=== PATIENT | female | born 1975 | race American Indian/Alaskan Native ===

== ENCOUNTER 2017-11-11 23:03 | Emergency (ER) | payer OTHER ==
[2017-11-11 23:14] VITALS: BMI 31.2
--- NOTE | 2017-11-11 23:45 | ED PDOC ---
Arrival/HPI - General Chief Complaint: Dental Pain Time Seen by Provider: 11/11/17 23:13 Historian: Patient EM Caveat: Acuity of Condition - History of Present Illness Narrative History of Present Illness (Text): 11/11/17 23:40 Pt is a 41 yr old female with a PMH of poor dentition presents today with gum pain and buccal swelling x 2 days. Pt states that she is scheduled to have al over her teeth extracted next month due to ongoing dental pain and cavities but found the pain was too severe and needed to come in. Says she was given Naproxen by her dentist but has no relief with it. Reports diffiuclty eating and drinking and opening her mouth and has subjective fever. Denies chest pain, sob, neck pain, ear pain, difficulty swallowing or any other complaints. Time/Duration: > month Symptom Onset: Gradual Symptom Course: Unchanged Quality: Aching, Pressure Activities at Onset: Eating Context: Home Past Medical History - Provider Review Nursing Documentation Reviewed: Yes - Travel History Have you recently traveled outside [place] w/in the past 3 mons?: No - Infectious Disease Hx of Infectious Diseases: None - Cardiac Hx Cardiac Disorders: Yes Hx Hypertension: Yes - Pulmonary Hx Respiratory Disorders: Yes Hx Asthma: Yes - Neurological Hx Neurological Disorder: No - HEENT Hx HEENT Disorder: No - Renal Hx Renal Disorder: No - Endocrine/Metabolic Hx Endocrine Disorders: Yes Hx Diabetes Mellitus Type 2: Yes - Hematological/Oncological Hx Blood Disorders: No - Integumentary Hx Dermatological Disorder: No - Musculoskeletal/Rheumatological Hx Musculoskeletal Disorders: No - Gastrointestinal Hx Gastrointestinal Disorders: No - Genitourinary/Gynecological Hx Genitourinary Disorders: No - Psychiatric Hx Psychophysiologic Disorder: Yes Hx Depression: Yes Hx Substance Use: No - Surgical History Hx Section: Yes (2) Other/Comment: Umbilical Hernia - Anesthesia Hx Anesthesia: No Family/Social History - Physician Review Nursing Documentation Reviewed: Yes Family/Social History: Unknown Family HX Smoking Status: Light Smoker < 10 Cigarettes Daily Hx Alcohol Use: Yes Frequency of alcohol use: Socially Hx Substance Use: No Allergies/Home Meds Allergies/Adverse Reactions: Allergies No Known Allergies Allergy (Verified 11/11/17 23:13) Home Medications: Home Meds Medication Instructions Recorded Confirmed Alogliptin Benzoate [Alogliptin] 25 mg PO DAILY 11/11/17 11/11/17 Enalapril Maleate [Vasotec] 5 mg PO DAILY 11/11/17 11/11/17 PARoxetine [Paxil] 30 mg PO DAILY 11/11/17 11/11/17 Review of Systems - Review of Systems Constitutional: Normal Eyes: Normal ENT: Normal, Other (dental and gum swelling and erythema) Respiratory: Normal Cardiovascular: Normal Gastrointestinal: Normal Genitourinary Female: Normal Musculoskeletal: Normal Skin: Normal Neurological: Normal Endocrine: Normal Hemo/Lymphatic: Normal Psychiatric: Normal Physical Exam Vital Signs Reviewed: Yes Vital Signs Temp Pulse Resp BP Pulse Ox 11/12/17 01:03 98 F 87 19 120/80 100 11/11/17 23:22 98.7 F 98 H 18 125/89 97 Temperature: Afebrile Blood Pressure: Normal Pulse: Regular Respiratory Rate: Normal Appearance: Positive for: Well-Appearing, Non-Toxic, Uncomfortable Pain Distress: Moderate Mental Status: Positive for: Alert and Oriented X 3 Finger Stick Blood Glucose: 87 - Systems Exam Head: Present: Normocephalic Mouth: Present: Moist Mucous Membranes, Normal Lips, Normal Tounge, Other ( multipel dental caries and and gum inflammation). No: Drooling, Trismus, Normal Teeth Pharnyx: Present: Normal Neck: Present: Normal Range of Motion Respiratory/Chest: Present: Clear to Auscultation, Good Air Exchange. No: Respiratory Distress, Accessory Muscle Use Cardiovascular: Present: Regular Rate and Rhythm, Normal S1, S2. No: Murmurs Abdomen: No: Tenderness, Distention, Peritoneal Signs Back: Present: Normal Inspection Upper Extremity: Present: Normal Inspection. No: Cyanosis, Edema Lower Extremity: Present: Normal Inspection. No: Edema Neurological: Present: GCS=15, CN II-XII Intact, Speech Normal Skin: Present: Warm, Dry, Normal Color. No: Rashes Psychiatric: Present: Alert, Oriented x 3, Normal Insight, Normal Concentration Medical Decision Making ED Course and Treatment: 11/11/17 23:45 Pt is a 41 yr old female with a PMH of poor dentition presents today with gum pain and buccal swelling x 2 days. plan Labs, pain management and keflex assess and dispo Progress note pt given Toradol IM for mod pain Keflex 500 mg po stat d/c with Keflex 500 mg po q12 x 5 f/u with dentist in the next day to have mouth assessed - Lab Interpretations Lab Results: 11/12/17 00:35 11/12/17 00:35 Lab Results 11/12/17 00:35: Sodium 142, Potassium 3.3 L, Chloride 104, Carbon Dioxide 28, Anion Gap 13, BUN 10, Creatinine 0.7, Est GFR ( Amer) > 60, Est GFR (Non- Af Amer) > 60, Random Glucose 89, Calcium 8.6, Total Bilirubin 0.2, AST 17, ALT 22, Alkaline Phosphatase 76, Total Protein 6.9, Albumin 3.9, Globulin 3.0, Albumin/Globulin Ratio 1.3 11/12/17 00:35: WBC 10.4, RBC 3.87, Hgb 10.4 L, Hct 31.0 L, MCV 80.1, MCH 26.9, MCHC 33.5, RDW 17.2 H, Plt Count 265, MPV 10.7, Gran % 72.5 H, Lymph % (Auto) 18.4 L, Wolfe % (Auto) 6.9 H, Eos % (Auto) 2.1, Baso % (Auto) 0.1, Gran # 7.54 H , Lymph # (Auto) 1.9, Wolfe # (Auto) 0.7 H, Eos # (Auto) 0.2, Baso # (Auto) 0.01 11/12/17 00:15: Urine Color Yellow, Urine Appearance Clear, Urine pH 6.0, Ur Specific Stryker <= 1.005, Urine Protein Negative, Urine Glucose (UA) Negative, Urine Ketones Negative, Urine Blood Small H, Urine Nitrate Negative, Urine Bilirubin Negative, Urine Urobilinogen 0.2, Ur Leukocyte Esterase Negative, Urine RBC 0 - 2, Urine WBC 0 - 2, Ur Epithelial Cells 4 - 5 11/11/17 23:27: POC Glucose (mg/dL) 87 - Medication Orders Current Medication Orders: Discontinued Medications Cephalexin Monohydrate (Keflex) 500 mg PO STAT STA PRN Reason: Protocol Stop: 11/11/17 23:49 Last Admin: 11/12/17 00:37 Dose: 500 mg Ketorolac Tromethamine (Toradol) 30 mg IM STAT STA Stop: 11/11/17 23:47 Last Admin: 11/12/17 00:36 Dose: 30 mg MAR Pain Assessment Document 11/12/17 00:36 LA (Rec: 11/12/17 00:37 LA [id number]) Pain Reassessment Is this a pain reassessment? No Sleep Is patient sleeping during reassessment? No Presence of Pain Presence of Pain Yes Pain Scale Used Pain Scale Used Numeric Location Left, Right or Bilateral Right Pain Location Body Site Jaw Description Description Intermittent Intensity of Pain at present 8 Pain Behavior Guarding IM Administration Charges Document 11/12/17 00:36 LA (Rec: 11/12/17 00:37 LA [id number]) Charges for Administration # of IM Administrations 1 Re-Assess: [facility] Pain Assessment Document 11/12/17 01:36 LA (Rec: 11/12/17 01:46 LA [id number]) Pain Reassessment Is this a pain reassessment? Yes Sleep Is patient sleeping during reassessment? Yes Disposition/Present on Arrival - Present on Arrival Any Indicators Present on Arrival: Yes History of DVT/PE: No History of Uncontrolled Diabetes: No Urinary Catheter: No History of Decub. Ulcer: No History Surgical Site Infection Following: None - Disposition Have Diagnosis and Disposition been Completed?: Yes Diagnosis: Pain due to dental caries, Gingivitis, acute, Dental abscess Disposition: HOME/ ROUTINE Disposition Time: 01:26 Patient Plan: Discharge Condition: STABLE Discharge Instructions (ExitCare): Tooth Decay, Adult, Dental Pain (DC) Additional Instructions: Please see your dentist for follow up care; take the medication as directed. If you have worsening of pain, fevers, chest pain or sever headache, return to the Emergency Department Prescriptions: Cephalexin [Keflex] 500 mg PO Q12 5 Days #10 cap Ibuprofen [Motrin Tab] 600 mg PO Q6 PRN 5 Days #20 tab PRN Reason: pain/fever Referrals: Bo Campos MD [Primary Care Provider] - Follow up with primary Forms: [employer] (U[place]an), WORK NOTE
[2017-11-12 00:45] LABS: URINE BILIRUBIN NEGATIVE (NEGATIVE); URINE BLOOD SMALL (NEGATIVE); URINE GLUCOSE (UA) NEGATIVE (NEGATIVE); URINE LEUKOCYTE ESTERASE NEGATIVE Leu/uL (NEGATIVE); URINE PROTEIN NEGATIVE mg/dL (<30 mg/dL); URINE UROBILINOGEN 0.2 E.U./dL (<1 E.U./dL)
[2017-11-12 00:46] LABS: BASO # 0.01 K/mm3 (0.0-2.0); BASO % 0.1 % (0.0-3.0); EOS # 0.2 (0.0-0.7); EOS % 2.1 % (1.5-5.0); GRAN # 7.54 (1.4-6.5); GRAN % 72.5 % (50.0-68.0); HEMOGLOBIN 10.4 g/dL (12.0-16.0); LYMPH # 1.9 (1.2-3.4); LYMPH % 18.4 % (22.0-35.0); MEAN CELL VOLUME 80.1 fl (80.0-105.0); MEAN CORPUSCULAR HEMOGLOBIN 26.9 pg (25.0-35.0); MEAN CORPUSCULAR HGB CONC 33.5 g/dl (31.0-37.0); MEAN PLATELET VOLUME 10.7 fl (7.0-11.0); MONO # 0.7 (0.1-0.6); MONO % 6.9 % (1.0-6.0); RBC 3.87 10^6/uL (3.5-6.1); RED CELL DISTRIBUTION WIDTH 17.2 % (11.5-14.5); WHITE BLOOD COUNT 10.4 10^3/ul (4.5-11.0)
[2017-11-12 00:47] LABS: URINE APPEARANCE CLEAR (CLEAR); URINE COLOR YELLOW (YELLOW)
[2017-11-12 00:56] LABS: URINE RBC 0 - 2 /hpf (0-2); URINE WBC 0 - 2 /hpf (0-6)
[2017-11-12 01:02] LABS: ALB/GLOB RATIO 1.3 (1.1-1.8); ALBUMIN 3.9 g/dL (3.0-4.8); ALT/SGPT 22 U/L (7-56); AST/SGOT 17 U/L (14-36); BLOOD UREA NITROGEN 10 mg/dL (7-21); CALCIUM 8.6 mg/dL (8.4-10.5); GFR AFRICAN-AMERICAN > 60; GFR NON-AFRICAN AMERICAN > 60
[2017-11-12 01:43] VITALS: BP 120/80; PULSE 87; RESP 19; TEMP 98; O2SAT 100
== END 2017-11-12 01:48 | disposition home or self-care (01) ==
LOC: ED 23:03
DX: K05.10 Chronic gingivitis, plaque induced (principal); K04.7 Periapical abscess without sinus; K02.9 Dental caries, unspecified; E11.9 Type 2 diabetes mellitus without complications; F17.210 Nicotine dependence, cigarettes, uncomplicated
CPT/HCPCS: 80053; 81001; 82948; 85025; 96372; 99283; J1885